=== PATIENT | female | born 1975 | race Two or more races ===

== ENCOUNTER → 2016-05-17 | Outpatient (CLI) | payer OTHER ==
--- NOTE | 2016-05-17 15:47 | RAD ---
Pelvic ultrasound, 05/17/2016: History: Fibroids Transabdominal and transvaginal scans were obtained. No previous studies are available at this time for comparison purposes. The uterus measures 10.9 x 3.5 x 6.6 cm. There is a hypoechoic mass arising from the posterior aspect of the uterus. It measures 5.1 x 2.7 x 4.0 cm. It is heterogeneous with internal color flow. The appearance is that of a uterine fibroid. An echogenic structure with posterior acoustic shadowing within the central uterine cavity presumably represents an IUD. The uterus is otherwise unremarkable. The ovaries are within normal limits in size. Several small follicular cysts are present in both ovaries. No free fluid is evident in the pelvis. IMPRESSION: 1. An IUD is in place in the central uterine cavity. 2. Single moderate sized uterine fibroid.
== END | disposition home or self-care (01) ==
LOC: US 13:52
PROVIDERS: ATTEND Family Medicine
DX: N92.0 Excessive and frequent menstruation with regular cycle (principal); D25.9 Leiomyoma of uterus, unspecified
CPT/HCPCS: 76830; 76856